=== PATIENT | female | born 1970 | race Caucasian/White ===

== ENCOUNTER 2019-04-19 09:24 | Emergency (ER) | payer OTHER ==
[~2019-04-19] VITALS: Ht 162.6 cm; Wt 68.0 kg
[~2019-04-19 09:24] MED LIST: BACLOFEN 10 MG10 MG PO; FLEXERIL; FLOMAX0.4 MG PO; IBUPROFEN 800800 MG PO; IMITREX100 MG; NORCO 5-325 TA1 EACH PO; PERCOCET PO; ZOFRAN ODT4 MG PO; ZOFRAN4 MG; ZOMIG ZMT5 MG; ZOMIG ZMT5 MG PO; ZOMIG5 MG
[2019-04-19] MEDS ORDERED: BACLOFEN 10MG T10 MG PO (09:41)
[2019-04-19] MEDS ORDERED: ONDANSETRON ODT4 MG PO (11:49)
[2019-04-19] MEDS ORDERED: TORADOL 10 MG T10 MG PO (11:54)
[2019-04-19 11:58] VITALS: BP 115/65
== END 2019-04-19 11:59 | disposition home or self-care (01) ==
LOC: M.ERS 09:24
DX: G43.909 Migraine, unspecified, not intractable, without status migrainosus (principal); Z88.8 Allergy status to other drugs, medicaments and biological substances